=== PATIENT | male | born 1960 | race Caucasian/White ===

== ENCOUNTER 2017-08-30 13:47 | Day surgery (SDC) | payer BC ==
[~2017-08-30 13:47] MED LIST: FLUT1SPR5 EACH NARE; LORA-361 PO; MULTCAP3
[2017-08-30] MEDS ORDERED: LACTCAP8 PO (14:28)
[2017-08-30] MEDS ORDERED: CLAR10CA3 PO (14:28)
[2017-08-30] MEDS ORDERED: FISHCAP4 PO (14:28)
[2017-08-30] MEDS ORDERED: SODIUM CHLORID 0.9% 500 ML IV PRN (14:45)
[2017-08-30] MEDS ORDERED: CHLORHEXIDINE GLUCONATE 2 % 1 PACK (2 CLOTHS) TOPICAL PRN (14:45)
[2017-08-30] MEDS ORDERED: LACTATED RINGER'S 1000 ML IV PRN (14:45)
[2017-08-30] MEDS ORDERED: METOPROLOL TARTRATE 25 MG TAB PO PRN (14:45)
[2017-08-30] MEDS ORDERED: POVIDONE IODINE 5% (ANTISEPSIS KIT) 4 APPLICATIONS EACH NARE PRN (14:45)
--- NOTE | 2017-08-31 15:44 | EKG ---
Date Performed: 08/30/2017 Time Performed: 14:20:24 PTAGE: 56 years EKG: Atrial flutter with rapid ventricular response. Inferior and lateral ST elevation, CONSIDER ACUTE INFARCT Abnormal ECG NO PREVIOUS TRACING DOCTOR: Jelani Yancey Interpretating Date/Time 08/31/2017 15:43:25
== END 2017-08-30 17:32 | disposition home or self-care (01) ==
LOC: HDIC 13:47 → HDOC 13:47
PROVIDERS: ATTEND Internal Medicine Interventional Cardiology
DX: I48.92 Unspecified atrial flutter (principal); I34.0 Nonrheumatic mitral (valve) insufficiency; I36.1 Nonrheumatic tricuspid (valve) insufficiency; R07.89 Other chest pain; R06.02 Shortness of breath; R42 Dizziness and giddiness; I20.9 Angina pectoris, unspecified
CPT/HCPCS: 93005; 93312; 93320; 93325

== ENCOUNTER 2017-09-21 13:25 | Day surgery (SDC) | payer BC ==
[~2017-09-21 13:25] MED LIST changes: +CLAR10CA3 PO; +FISHCAP4 PO; +LACTCAP8 PO; -LORA-361 PO
[2017-09-21] MEDS ORDERED: ASPI81TA23 PO (14:19)
[2017-09-21] MEDS ORDERED: LANO0.252 PO (14:19)
[2017-09-21] MEDS ORDERED: XARE20TA PO (14:19)
--- NOTE | 2017-09-21 15:02 | MR ---
cc: Vi Fry MD 09/21/2017 PROCEDURE PERFORMED: DC cardioversion. INDICATION: Atrial flutter. PROCEDURE: After the patient was sedated by Anesthesia, a 50 joule biphasic energy was delivered and converted the patient into sinus rhythm. The patient remained stable and was discharged home in stable condition. DIAGNOSIS: Successful cardioversion of atrial fibrillation. PLAN: Mr. Zaragoza will continue his current medical therapy including anticoagulation. He will be scheduled to follow up in our office after discharge. Vi Fry MD OQ/SB , 02:43 PM , 03:00 PM MTDD
--- NOTE | 2017-09-22 13:40 | EKG ---
Date Performed: 09/21/2017 Time Performed: 15:32:34 PTAGE: 56 years EKG: Sinus rhythm . Possible left atrial abnormality Inferior T wave changes are nonspecific Left atrial enlargement Co mpared to previous tracing the atrial flutter is resolved. The underlying nonspecific ST T wave gonzalez es have resolved with the extent to which they were previously present is difficult to ascertain in t he setting of the atrial flutter Borderline ECG PREVIOUS TRACING : 09/21/2017 13.57 DOCTOR: Tess Jewell Interpretating Date/Time 09/22/2017 13:38:46
--- NOTE | 2017-09-22 14:04 | EKG ---
Date Performed: 09/21/2017 Time Performed: 13:57:06 PTAGE: 56 years EKG: Atrial flutter with 4:1 A-V block. Inferior ST elevation suggests early repolarization Exte nsive T wave changes may be due to myocardial ischemia Abnormal ECG Since the PREVIOUS TRACING , no significant change noted PREVIOUS TRACIN08/30/2017 14.20 DOCTOR: Tess Jewell Interpretating Date/Time 09/22/2017 13:56:00
== END 2017-09-21 15:40 | disposition home or self-care (01) ==
LOC: HDOC 13:25 → HDIC 13:26 → HDOC 15:40
PROVIDERS: ATTEND Internal Medicine Interventional Cardiology
DX: I48.91 Unspecified atrial fibrillation (principal); I48.0 Paroxysmal atrial fibrillation
CPT/HCPCS: 92960; 93005